=== PATIENT | male | born 1980 | race Caucasian/White ===

== ENCOUNTER 2017-07-18 20:58 | Emergency (ER) | payer MEDICAID ==
[~2017-07-18] VITALS: Ht 167.6 cm; Wt 98.0 kg
[2017-07-18] MEDS ORDERED: NKM (21:05)
[2017-07-18 21:25] VITALS: BP 137/90
[2017-07-18] MEDS ORDERED: Ketorolac 30mg Inj IV ONE (21:30)
[2017-07-18 21:51] LABS: BASOPHILS % (AUTO) 0.8 % (0.0-2.0); EOSINOPHILS % (AUTO) 1.5 % (0.0-3.0); HEMATOCRIT 41.4 % (42.0-52.0); HEMOGLOBIN 14.1 G/DL (14.2-18.0); LYMPHOCYTES % (AUTO) 37.6 % (20.0-45.0); MEAN CORPUSCULAR VOLUME 91 FL (80-99); MONOCYTES % (AUTO) 6.1 % (1.0-10.0); PLATELET COUNT 114 K/UL (150-450); RED BLOOD COUNT 4.57 M/UL (4.70-6.10); RED CELL DISTRIBUTION WIDTH 12.4 % (11.6-14.8); WHITE BLOOD COUNT 6.7 K/UL (4.8-10.8)
[2017-07-18 22:16] LABS: ANION GAP 9 mmol/L (5-15); BLOOD UREA NITROGEN 22 mg/dL (7-18); CALCIUM 8.6 MG/DL (8.5-10.1); CARBON DIOXIDE 26 MMOL/L (21-32); CHLORIDE 105 MMOL/L (98-107); CREATININE 1.2 MG/DL (0.55-1.30); POTASSIUM 3.8 MMOL/L (3.5-5.1); SODIUM 140 MMOL/L (136-145)
[2017-07-18 22:20] LABS: ALANINE AMINOTRANSFERASE 24 U/L (12-78); ALBUMIN 3.9 G/DL (3.4-5.0); ALBUMIN/GLOBULIN RATIO 1.1 (1.0-2.7); ALKALINE PHOSPHATASE 81 U/L (46-116); ASPARTATE AMINO TRANSFERASE 15 U/L (15-37); BILIRUBIN,TOTAL 0.3 MG/DL (0.2-1.0)
--- NOTE | 2017-07-18 22:23 | Emergency Room Report ---
History of Present Illness General Chief Complaint: Abdominal Pain Source: Patient Present Illness HPI 37-year-old male presents ED complaining of abdominal pain. Started earlier today. Right upper quadrant pain, radiating to the back. 10 out of 10, sharp. Patient states he has history of gallstones. Has had multiple attacks over the years. Has been offered option for surgery previously but declined. Allergies: Coded Allergies: No Known Allergies (Unverified , 07/18/17) Patient History Past Medical History: other - gallstones Past Surgical History: none Pertinent Family History: none Social History: Denies: smoking, alcohol use, drug use Immunizations: UTD Reviewed Nursing Documentation: PMH: Agreed; PSxH: Agreed Nursing Documentation-PMH Hx Gastrointestinal Problems: Yes - GALLSTONES Review of Systems All Other Systems: negative except mentioned in HPI Physical Exam Vital Signs Date Time Temp Pulse Resp B/P (MAP) Pulse Ox O2 Delivery O2 Flow Rate FiO2 07/18/17 21:00 97.7 74 16 137/90 97 Room Air 97.7 Sp02 EP Interpretation: reviewed, normal General Appearance: no apparent distress, alert, GCS 15, non-toxic Head: normocephalic, atraumatic Eyes: bilateral eye normal inspection, bilateral eye PERRL ENT: hearing grossly normal, normal pharynx, no angioedema, normal voice Neck: full range of motion, supple/symm/no masses Respiratory: chest non-tender, lungs clear, normal breath sounds, speaking full sentences Cardiovascular #1: regular rate, rhythm, no edema Cardiovascular #2: 2+ carotid (R), 2+ carotid (L), 2+ radial (R), 2+ radial (L) , 2+ dorsalis pedis (R), 2+ dorsalis pedis (L) Gastrointestinal: normal bowel sounds, soft, non-distended, no guarding, no rebound, tenderness - RUQ Rectal: deferred Genitourinary: normal inspection, no CVA tenderness Musculoskeletal: back normal, gait/station normal, normal range of motion, non- tender Neurologic: alert, oriented x3, responsive, motor strength/tone normal, sensory intact, speech normal Psychiatric: judgement/insight normal, memory normal, mood/affect normal, no suicidal/homicidal ideation Reflexes: 3+ bicep (R), 3+ bicep (L), 3+ tricep (R), 3+ tricep (L), 3+ knee (R) , 3+ knee (L) Skin: normal color, no rash, warm/dry, well hydrated Lymphatic: no adenopathy Medical Decision Making Diagnostic Impression: Primary Impression: Biliary colic ER Course Hospital Course 37 yo M presents with RUQ pain Differential diagnosis includes-appendicitis, cholecystitis, small bowel obstruction, gastritis, Clinical course Patient placed on stretcher. After initial history and physical I ordered labs , IV fluids, pain medications and US Labs - no leukocytosis, electrolytes ok, LFTs normal ABD US - GB stones seen. no pericholecystic fluid. no GB wall thickening Discussed findings with patient. Consistent with biliary colic. No evidence of cholecystitis or obstruction. Patient safe for discharge. Patient has had these symptoms on and off for years. Is strongly considering option for surgery. I will give him referral for surgery I feel this is a highly complex case requiring extensive working including EKG/ Rhythm strip, Xray/CT/US, Blood/urine lab work, repeat exams while in ED, and administration of strong opiates/narcotics for pain control, admission to hospital or close patient follow up. Diagnosis - biliary colic Stable and discharged to home with Rx Motrin, Senath. Followup with PMD/ surgery. Return to ED if symptoms recur or worsen Labs Test 07/18/17 21:30 White Blood Count 6.7 K/UL (4.8-10.8) Red Blood Count 4.57 M/UL (4.70-6.10) Hemoglobin 14.1 G/DL (14.2-18.0) Hematocrit 41.4 % (42.0-52.0) Mean Corpuscular Volume 91 FL (80-99) Mean Corpuscular Hemoglobin 30.9 PG (27.0-31.0) Mean Corpuscular Hemoglobin Concent 34.1 G/DL (32.0-36.0) Red Cell Distribution Width 12.4 % (11.6-14.8) Platelet Count 114 K/UL (150-450) Mean Platelet Volume 9.4 FL (6.5-10.1) Neutrophils (%) (Auto) 54.0 % (45.0-75.0) Lymphocytes (%) (Auto) 37.6 % (20.0-45.0) Monocytes (%) (Auto) 6.1 % (1.0-10.0) Eosinophils (%) (Auto) 1.5 % (0.0-3.0) Basophils (%) (Auto) 0.8 % (0.0-2.0) Sodium Level 140 MMOL/L (136-145) Potassium Level 3.8 MMOL/L (3.5-5.1) Chloride Level 105 MMOL/L (98-107) Carbon Dioxide Level 26 MMOL/L (21-32) Anion Gap 9 mmol/L (5-15) Blood Urea Nitrogen 22 mg/dL (7-18) Creatinine 1.2 MG/DL (0.55-1.30) Estimat Glomerular Filtration Rate > 60 mL/min (>60) Glucose Level 105 MG/DL (74-106) Calcium Level 8.6 MG/DL (8.5-10.1) Total Bilirubin 0.3 MG/DL (0.2-1.0) Aspartate Amino Transf (AST/SGOT) 15 U/L (15-37) Alanine Aminotransferase (ALT/SGPT) 24 U/L (12-78) Alkaline Phosphatase 81 U/L (46-116) Total Protein 7.4 G/DL (6.4-8.2) Albumin 3.9 G/DL (3.4-5.0) Globulin 3.5 g/dL Albumin/Globulin Ratio 1.1 (1.0-2.7) Lipase 138 U/L (73-393) CT/MRI/US Diagnostic Results CT/MRI/US Diagnostic Results : Imaging Test Ordered: ABD US Impression GB stones seen. + murphys. no GB thickening. no pericholecystic fluid Last Vital Signs Date Time Temp Pulse Resp B/P (MAP) Pulse Ox O2 Delivery O2 Flow Rate FiO2 07/18/17 21:38 97.7 07/18/17 21:25 74 16 137/90 97 Room Air Status: improved Disposition: HOME, SELF-CARE Condition: Stable Scripts Hydrocodone Bit/Acetaminophen 5-325* (NORCO 5-325*) 1 Each Tablet 1 TAB ORAL Q6H PRN for For Pain, #10 TAB 0 Refills Prov: Shaheed Covarrubias MD 07/18/17 Ibuprofen* (MOTRIN*) 600 Mg Tablet 600 MG ORAL Q8H PRN for For Pain, #30 TAB 0 Refills Prov: Shaheed Covarrubias MD 07/18/17 Referrals: NOT CHOSEN [facility]/,REFERRING (PCP) Shaheed Covarrubias MD July 18, 2017 22:23
[2017-07-18] MEDS ORDERED: Morphine Sulfate 4mg/ml Inj IVP ONE (23:00)
[2017-07-18] MEDS ORDERED: Morphine Sulfate 4mg/ml Inj ONE (23:02)
[2017-07-18] MEDS ORDERED: NORCO 5-325 TA1 EACH ORAL (23:20)
[2017-07-18] MEDS ORDERED: IBUPROFEN600 MG ORAL (23:20)
[2017-07-18 23:30] VITALS: BP 132/88
[2017-07-18 23:34] VITALS: BP 132/88
--- NOTE | 2017-07-19 10:47 | Diagnostic Imaging Report ---
Indication:Abdominal pain Technique: Grayscale and duplex Doppler imaging of the abdomen performed. Comparison: None Findings: Gallstones are present. No wall thickening or pericholecystic fluid identified. Sonographic Ibrahim's is reported as positive per technologist. Please correlate clinically. The liver and spleen are unremarkable. There is no biliary ductal dilatation. Portal vein is patent by Doppler examination. CBD is 5 mm. No free fluid identified. No hydronephrosis or abnormalities of the kidneys aorta or demonstrated part of the pancreas appreciated. IMPRESSION: Cholelithiasis. Positive sonographic Ibrahim's suggestive of cholecystitis. Please correlate clinically.
== END 2017-07-18 23:34 | disposition home or self-care (01) ==
LOC: EMR 21:10
DX: K80.20 Calculus of gallbladder without cholecystitis without obstruction (principal)
CPT/HCPCS: 36415; 76700; 80053; 83690; 85025; 96374; 96375; 99284; J1885; J2270; J2405; S0028

== ENCOUNTER 2017-08-21 08:40 | Emergency (ER) | payer SELFPAY ==
[~2017-08-21] VITALS: Ht 170.2 cm; Wt 93.0 kg
[~2017-08-21 08:40] MED LIST: IBUPROFEN600 MG ORAL; NKM; NORCO 5-325 TA1 EACH ORAL
[2017-08-21 08:50] VITALS: BP 131/77
[2017-08-21] MEDS ORDERED: Ketorolac 30mg Inj IV ONE (09:00)
--- NOTE | 2017-08-21 09:10 | Emergency Room Report ---
History of Present Illness General Chief Complaint: Abdominal Pain Source: Patient Present Illness HPI Patient presents with right upper quadrant pain. It's lasting longer than usual this time. Denies any vomiting or diarrhea but does have nausea. He denies any fevers or chills. Normal BMs with normal color and no blood. Patient has a history of gallstones - seen here 07/18. He's taken Advil a couple of times. He still has pain at this time at 8/10. He was told to return as the stones might block or cause more significant infection. The patient is in rehabilitation for abuse of methadone. He prefers not to take opiates at this time. Denies Hep C. No chest pain, cough, dyspnea, rashes, depression. No dysuria or change in color of urine. Allergies: Coded Allergies: No Known Allergies (Unverified , 07/18/17) Patient History Past Medical History: see triage record Social History: Reports: smoking, drug use - in rehab Social History Narrative in rehab Reviewed Nursing Documentation: PMH: Agreed; PSxH: Agreed Nursing Documentation-PMH Past Medical History: No History, Except For Hx Gastrointestinal Problems: Yes - GALLSTONES Review of Systems All Other Systems: negative except mentioned in HPI Physical Exam Vital Signs Date Time Temp Pulse Resp B/P (MAP) Pulse Ox O2 Delivery O2 Flow Rate FiO2 08/21/17 08:43 98.4 79 18 131/77 96 Room Air 98.4 Sp02 EP Interpretation: reviewed, normal General Appearance: well appearing, no apparent distress, GCS 15 Head: normocephalic Eyes: bilateral eye normal inspection, bilateral eye PERRL ENT: moist mucus membranes Neck: supple Respiratory: lungs clear, normal breath sounds Cardiovascular #1: regular rate, rhythm Cardiovascular #2: 2+ radial (R) Gastrointestinal: normal inspection, normal bowel sounds, no mass, non- distended, no guarding, no rebound, tenderness - RUQ Genitourinary: no CVA tenderness Musculoskeletal: back normal, gait/station normal, normal range of motion Neurologic: alert, oriented x3, grossly normal Psychiatric: mood/affect normal Skin: normal inspection, warm/dry Medical Decision Making Diagnostic Impression: Primary Impression: Biliary colic ER Course Patient presents with right upper quadrant pain that's lasted longer. Differential includes cholecystitis, cholelithiasis, biliary colic, pancreatitis amongst others. Evaluation will be with labs and ultrasound. Patient be treated with IV hydration and Toradol. Labs essentially unremarkable (normal WBC, lytes, bili) US with some dilatation of CBD. No pericholecystic fluid. Patient improved and decreased pain. Discussed close follow up with Dr. Banerjee (consulted by phone today) who agreed to see patient tomorrow. Patient stable for outpatient observation and treatment. Laboratory Tests Test 08/21/17 09:13 White Blood Count 5.1 K/UL (4.8-10.8) Red Blood Count 4.36 M/UL (4.70-6.10) L Hemoglobin 13.3 G/DL (14.2-18.0) L Hematocrit 40.3 % (42.0-52.0) L Mean Corpuscular Volume 92 FL (80-99) Mean Corpuscular Hemoglobin 30.4 PG (27.0-31.0) Mean Corpuscular Hemoglobin Concent 32.9 G/DL (32.0-36.0) Red Cell Distribution Width 11.9 % (11.6-14.8) Platelet Count 98 K/UL (150-450) L Mean Platelet Volume 10.1 FL (6.5-10.1) Neutrophils (%) (Auto) % (45.0-75.0) Lymphocytes (%) (Auto) % (20.0-45.0) Monocytes (%) (Auto) % (1.0-10.0) Eosinophils (%) (Auto) % (0.0-3.0) Basophils (%) (Auto) % (0.0-2.0) Differential Total Cells Counted 100 Neutrophils % (Manual) 69 % (45-75) Lymphocytes % (Manual) 25 % (20-45) Monocytes % (Manual) 5 % (1-10) Eosinophils % (Manual) 1 % (0-3) Basophils % (Manual) 0 % (0-2) Band Neutrophils 0 % (0-8) Platelet Estimate Decreased L Platelet Morphology Normal Red Blood Cell Morphology Normal Prothrombin Time 11.2 SEC (9.30-11.50) Prothrombin Time INR 1.1 (0.9-1.1) PTT 26 SEC (23-33) Urine Color Yellow Urine Appearance Clear Urine pH 6 (4.5-8.0) Urine Specific [place] 1.015 (1.005-1.035) Urine Protein 1+ (NEGATIVE) H Urine Glucose (UA) Negative (NEGATIVE) Urine Ketones Negative (NEGATIVE) Urine Occult Blood Negative (NEGATIVE) Urine Nitrite Negative (NEGATIVE) Urine Bilirubin Negative (NEGATIVE) Urine Urobilinogen Normal MG/DL (0.0-1.0) Urine Leukocyte Esterase 1+ (NEGATIVE) H Urine RBC 0 /HPF (0 - 0) Urine WBC 0-2 /HPF (0 - 0) Urine Squamous Epithelial Cells Occasional /LPF Urine Bacteria Occasional /HPF (NONE) Sodium Level 142 MMOL/L (136-145) Potassium Level 4.0 MMOL/L (3.5-5.1) Chloride Level 106 MMOL/L (98-107) Carbon Dioxide Level 26 MMOL/L (21-32) Anion Gap 10 mmol/L (5-15) Blood Urea Nitrogen 19 mg/dL (7-18) H Creatinine 0.8 MG/DL (0.55-1.30) Estimate Glomerular Filtration Rate > 60 mL/min (>60) Glucose Level 106 MG/DL (74-106) Calcium Level 8.5 MG/DL (8.5-10.1) Total Bilirubin 0.3 MG/DL (0.2-1.0) Aspartate Amino Transferase (AST) 68 U/L (15-37) H Alanine Aminotransferase (ALT) 44 U/L (12-78) Alkaline Phosphatase 73 U/L (46-116) Total Protein 6.9 G/DL (6.4-8.2) Albumin 3.7 G/DL (3.4-5.0) Globulin 3.2 g/dL Albumin/Globulin Ratio 1.2 (1.0-2.7) Lipase 89 U/L (73-393) CT/MRI/US Diagnostic Results CT/MRI/US Diagnostic Results : Imaging Test Ordered: us Impression stones - CBD some dilatation, no pericholecystic fluid or wall thickening Last Vital Signs Date Time Temp Pulse Resp B/P (MAP) Pulse Ox O2 Delivery O2 Flow Rate FiO2 08/21/17 13:15 98.4 08/21/17 13:12 61 18 117/69 96 Room Air Status: improved Disposition: HOME, SELF-CARE Condition: Improved Scripts Acetaminophen (Tylenol) 325 Mg Tablet 650 MG ORAL Q6H PRN for Prn Pain/Headache/Temp > 101, #20 TAB 0 Refills Prov: Leonardo Soria M.D. 08/21/17 Ibuprofen* (MOTRIN*) 600 Mg Tablet 600 MG ORAL Q6H PRN for For Pain, #20 TAB Prov: Leonardo Soria M.D. 08/21/17 Leonardo Soria M.D. Aug 21, 2017 09:10
[2017-08-21 09:41] LABS: HEMATOCRIT 40.3 % (42.0-52.0); HEMOGLOBIN 13.3 G/DL (14.2-18.0); MEAN CORPUSCULAR VOLUME 92 FL (80-99); PLATELET COUNT 98 K/UL (150-450); RED BLOOD COUNT 4.36 M/UL (4.70-6.10); RED CELL DISTRIBUTION WIDTH 11.9 % (11.6-14.8); WHITE BLOOD COUNT 5.1 K/UL (4.8-10.8)
[2017-08-21 09:42] LABS: APPEARANCE,URINE CLEAR; BILIRUBIN, URINE NEGATIVE (NEGATIVE); GLUCOSE, URINE (UA) NEGATIVE (NEGATIVE); KETONES,URINE NEGATIVE (NEGATIVE); LEUKOCYTE ESTERASE ,URINE 1+ (NEGATIVE); NITRITE,URINE NEGATIVE (NEGATIVE); PH,URINE 6 (4.5-8.0); PROTEIN,URINE 1+ (NEGATIVE); UROBILINOGEN,URINE NORMAL MG/DL (0.0-1.0)
[2017-08-21 09:54] LABS: COLOR,URINE YELLOW
[2017-08-21 10:01] LABS: INR 1.1 (0.9-1.1)
[2017-08-21 10:02] LABS: ANION GAP 10 mmol/L (5-15); BLOOD UREA NITROGEN 19 mg/dL (7-18); CALCIUM 8.5 MG/DL (8.5-10.1); CARBON DIOXIDE 26 MMOL/L (21-32); CHLORIDE 106 MMOL/L (98-107); CREATININE 0.8 MG/DL (0.55-1.30); SODIUM 142 MMOL/L (136-145)
[2017-08-21 10:07] LABS: ALANINE AMINOTRANSFERASE 44 U/L (12-78); ALBUMIN 3.7 G/DL (3.4-5.0); ALBUMIN/GLOBULIN RATIO 1.2 (1.0-2.7); ALKALINE PHOSPHATASE 73 U/L (46-116); ASPARTATE AMINO TRANSFERASE 68 U/L (15-37); BILIRUBIN,TOTAL 0.3 MG/DL (0.2-1.0)
--- NOTE | 2017-08-21 11:03 | Diagnostic Imaging Report ---
Indication: Abdominal pain, right upper quadrant pain Technique: Chinchilla-scale and duplex images of the upper abdomen were obtained Comparison: 07/18/2017 Findings: Gallbladder contains gallstones. No wall thickening nor pericholecystic fluid. There is also gallbladder sludge. Sonographic Ibrahim's sign is positive. Note, however, this was reportedly positive on the prior exam as well. Common bile duct measures 9 mm in diameter. This is increased from the previous value of 5 mm. No intrahepatic biliary ductal dilatation. Liver demonstrates normal echogenicity, no focal abnormality. It is equivocally somewhat enlarged. Portal vein and hepatic veins are patent. Pancreas is unremarkable. The spleen is borderline enlarged, measuring 13.3 cm long axis dimension. Left kidney measures 11.8 cm in length. Right kidney measures 11.2 cm length. Both kidneys demonstrate normal echogenicity. There is no hydronephrosis. Equivocal echogenic foci are seen in the left renal sinus, not definitely demonstrated previously . Abdominal aorta is partially obscured by bowel gas, visualized portions are non-aneurysmal . Impression: Cholelithiasis and gallbladder sludge, also previously reported. Positive sonographic Ibrahim's sign, raises concern for acute cholecystitis. Correlate with clinical findings, consider hepatobiliary scan as clinically indicated Mildly dilated common bile duct. Downstream obstruction possible. Correlate with liver function tests, consider MRCP if clinically indicated Borderline hepatomegaly. Borderline splenomegaly Equivocal echogenic foci in the left kidney, most likely artifactual but could represent nonobstructive calculi
[2017-08-21 12:10] VITALS: BP 106/61
[2017-08-21] MEDS ORDERED: TYLENOL325 MG ORAL (13:01)
[2017-08-21] MEDS ORDERED: IBUPROFEN600 MG ORAL (13:01)
[2017-08-21 13:12] VITALS: BP 117/69
== END 2017-08-21 13:16 | disposition home or self-care (01) ==
LOC: EMR 09:48
DX: K80.20 Calculus of gallbladder without cholecystitis without obstruction (principal)
CPT/HCPCS: 36415; 76700; 80053; 81003; 83690; 85007; 85025; 85610; 85730; 96361; 96374; 96375; 99284; J1885; J2405; S0028

== ENCOUNTER 2018-03-22 15:19 | Emergency (ER) | payer OTHER ==
[~2018-03-22] VITALS: Ht 170.2 cm; Wt 77.1 kg
[~2018-03-22 15:19] MED LIST changes: +TYLENOL325 MG ORAL
[2018-03-22 15:30] VITALS: BP 119/74
--- NOTE | 2018-03-22 15:30 | NUR ---
ED Nurse Note: pt walked into ed c/o flu like s/s for two weeks. Pt denies fever at this time. Pt AA&ox4, gcs=15, skin warm and dry, resp even and unlabored, airway patent, -n/v/d, ambulates w/ steady gait, will continue to monitor.
--- NOTE | 2018-03-22 16:16 | Emergency Room Report ---
History of Present Illness General Chief Complaint: Upper Respiratory Illness Source: Patient Present Illness HPI 38-year-old male presents to the emergency department complaining of 4 out of 10 in severity sore throat for almost 2 weeks. Patient reports initially nasal congestion which seemed to almost resolve and then he began having a cough for several days. Patient states the cough resolved but the nasal congestion returned as well as the sore throat. Patient denies fevers or chills he denies history of immunocompromise he states he has taken several pmxg-agz-dwetaey medications without relief. Denies purulent discharge. Pt. reports just completing substance abuse detox and living in a small space with many other persons. Allergies: Coded Allergies: No Known Allergies (Unverified , 07/18/17) Patient History Past Medical History: see triage record Past Surgical History: none Pertinent Family History: none Social History: Reports: drug use Reviewed Nursing Documentation: PMH: Agreed; PSxH: Agreed Nursing Documentation-PMH Past Medical History: No History, Except For Hx Gastrointestinal Problems: Yes - GALLSTONES Review of Systems All Other Systems: negative except mentioned in HPI Physical Exam Vital Signs Date Time Temp Pulse Resp B/P (MAP) Pulse Ox O2 Delivery O2 Flow Rate FiO2 03/22/18 15:23 98.1 69 20 119/74 98 Room Air Medical Decision Making PA Attestation Dr. Soria is my supervising Physician whom patient management has been discussed with. Diagnostic Impression: Primary Impression: Pharyngitis Qualified Codes: J02.0 - Streptococcal pharyngitis Additional Impressions: Post-nasal drainage Sinusitis nasal Qualified Codes: J01.10 - Acute frontal sinusitis, unspecified ER Course 38-year-old male presents to the emergency department complaining of 4 out of 10 in severity sore throat for almost 2 weeks. Patient reports initially nasal congestion which seemed to almost resolve and then he began having a cough for several days. Patient states the cough resolved but the nasal congestion returned as well as the sore throat. Patient denies fevers or chills he denies history of immunocompromise he states he has taken several [id number]-fbftacj medications without relief. Denies purulent discharge. Pt. reports just completing substance abuse detox and living in a small space with many other persons. Ddx considered but are not limited to URI, pneumonia, PE, strep pharyngitis, meningitis, sinusitis, PND just to name a few. Vital signs: Pt. is afebrile, the remaining VS are WNL H&PE are most consistent with Sinusitis, Post nasal drainage and pharyngitis secondary to the PND. --Pt. non-toxic in appearance and NAD. ORDERS: none required at this time, the diagnosis is clinical ED INTERVENTIONS: None required at this time. *!* Due to Pt. having Symptoms for OVER 10 DAYS , pt. is a candidate for antibiotic therapy *!* DISCHARGE: At this time pt. is stable for d/c to home. Will provide printed patient care instructions, and any necessary prescriptions. Care plan and follow up instructions have been discussed with the patient prior to discharge. Last Vital Signs Date Time Temp Pulse Resp B/P (MAP) Pulse Ox O2 Delivery O2 Flow Rate FiO2 03/22/18 15:30 98.1 69 20 119/74 98 Room Air Disposition: HOME, SELF-CARE Condition: Stable Scripts Lidocaine HCl 2% Viscous (Lidocaine HCl 2% Viscous) 100 Ml Solution 15 ML ORAL QID, #200 ML Prov: Juana Watt 03/22/18 Oxymetazoline HCl (Afrin) 15 Ml [place] 2 SPRAY NASAL TWICE A DAY, #15 ML DO NOT USE FOR MORE THAN 3 CONSECUTIVE DAYS. Prov: Juana Watt 03/22/18 Amoxicillin/Potassium Clav 875-125* (AUGMENTIN 875-125 TABLET*) 1 Each Tablet 1 TAB ORAL TWICE A DAY for 10 Days, #20 TAB Prov: Juana Watt 03/22/18 Patient Instructions: Pharyngitis, [id number] Additional Instructions: Take medications as directed. Follow up with a Primary Care Provider in 3-5 days, even if your symptoms have resolved. --Please review list of primary care clinics, if you do not already have a primary care provider Return sooner to ED if new symptoms occur, or current symptoms become worse. - Please note that this Emergency Department Report was dictated using [employer] Therapeuticstopography technician technology software, occasionally this can lead to erroneous entry secondary to interpretation by the dictation equipment. Juana Watt Mar 22, 2018 16:16
[2018-03-22] MEDS ORDERED: AFRIN NASAL SPR30 ML NASAL (16:20)
[2018-03-22] MEDS ORDERED: AUGMENTIN 875-1 EAC1 ORAL (16:20)
[2018-03-22] MEDS ORDERED: LIDOCAINE VISC100 ML ORAL (16:20)
--- NOTE | 2018-03-22 16:28 | NUR ---
ED Nurse Note: Pt discharge instruction provided w/ prescription, id band removed, pt education done via discussion and handout, pt verbalized understanding and agrees with plan, pt advised to follow up with pcp regarding pt's condition, pt advised to return to ed if s/s worsen or new s/s develop.
[2018-03-22 17:05] VITALS: BP 127/77
== END 2018-03-22 16:28 | disposition home or self-care (01) ==
LOC: EMR 16:25
DX: J02.9 Acute pharyngitis, unspecified (principal); R09.82 Postnasal drip; J32.9 Chronic sinusitis, unspecified
CPT/HCPCS: 99282